=== PATIENT | male | born 1985 | race Asian ===

== ENCOUNTER 2018-05-01 04:37 | Emergency (ER) | payer SELFPAY ==
[~2018-05-01] VITALS: Ht 188 cm; Wt 73.0 kg
[2018-05-01] MEDS ORDERED: IBUPROFEN 600MG TABLET PO ONE (07:00)
[2018-05-01] MEDS ORDERED: MORPHINE SULFATE 4 MG/ML CPJ (NOT FOR IM USE) IV ONE (08:45)
[2018-05-01] MEDS ORDERED: ACETAMINOPHEN 325MG TABLET PO ONE (09:45)
[2018-05-01 11:33] VITALS: BP 100/57
== END 2018-05-01 13:03 | disposition home or self-care (01) ==
LOC: ER 04:37
DX: S92.001A Unspecified fracture of right calcaneus, initial encounter for closed fracture (principal); W10.8XXA Fall (on) (from) other stairs and steps, initial encounter; Y93.89 Activity, other specified; Y92.89 Other specified places as the place of occurrence of the external cause; Y99.8 Other external cause status
CPT/HCPCS: 29515; 73590; 73610; 73630; 99284; J7040; J2270